=== PATIENT | female | born 1980 | race Caucasian/White ===

== ENCOUNTER 2019-05-31 15:48 | Emergency (ER) | payer OTHER ==
--- NOTE | 2019-05-31 15:51 | ED Physician Documentation ---
General Adult - HISTORIAN Historian: patient - HPI Stated Complaint: "stomach bug" Chief Complaint: General Adult Onset: days ago Timing: still present Severity: moderate Further Comments: yes (Pt is a 38 yo female with hx gastric sleeve who says that she "has a stomach bug" that has affected several members of her family. Pt has had n/v x 3 days with some diarrhea.) - ROS CONST: weakness EYES/ENT: none CVS/RESP: none GI/: abdominal pain (diffuse) MS/SKIN/LYMPH: none - PAST HX Past History: other (gastric sleeve, depression) Allergies/Adverse Reactions: Allergies Allergy/AdvReac Type Severity Reaction Status Date / Time latex Allergy Verified 05/31/19 16:17 metoclopramide [From Reglan] Allergy Verified 05/31/19 16:17 paroxetine HCl [From Paxil] Allergy Verified 05/31/19 16:17 Home Medications: Ambulatory Orders Medication Instructions Recorded Zolpidem Tartrate [Ambien] 5 mg PO HS u2 03/10/13 - SOCIAL HX Smoking History: non-smoker - FAMILY HX Family History: No - REVIEWED ASSESSMENTS Nursing Assessment Reviewed: Yes Vitals Reviewed: Yes Progress - Progress Progress: NS 1 L IVF Zofran 4 mg IV NS + 40 mEq/L KCL, 1 L @ 250 cc/hr elevated Liver enzymes, T. Bili. = 4.7 Transfer to [facility], . - EKG/XRAY/CT EKG: rhythm (sinus tachycardia, [id number].) General Adult Physical Exam - PHYSICAL EXAM GENERAL APPEARANCE: mild distress EENT: pharynx normal NECK: normal inspection, supple RESPIRATORY: no resp distress, chest non-tender, breath sounds normal CVS: reg rate & rhythm, heart sounds normal ABDOMEN: soft, no organomegaly, normal bowel sounds, tenderness (mild, diffuse) BACK: normal inspection, no CVA tenderness SKIN: warm/dry, normal color EXTREMITIES: non-tender, normal range of motion, no evidence of injury NEURO: oriented X3, motor nml, sensation nml Discharge Clincal Impression: Hypokalemia, Elevated liver enzymes, hx gastric sleeve Nausea & vomiting Qualifiers: Vomiting type: unspecified Vomiting Intractability: non-intractable Qualified Code(s): R11.2 - Nausea with vomiting, unspecified Referrals: Primary Doctor,No [Primary Care Provider] - Condition: Stable Disposition: 02 XFER SHT-TRM HOSP Decision to Admit: NO Decision Time: 18:42
[2019-05-31] MEDS ORDERED: ONDANSETRON HCL/PF 4 MG/ 2ML VIAL IVP ONE (16:03)
[2019-05-31] MEDS ORDERED: 0.9 % SODIUM CHLORIDE 1,000 ML IV ONE (16:04)
[2019-05-31 16:22] LABS: BASOPHILS % 1.2 % (0.0-1.5)
[2019-05-31 16:32] LABS: eGFR (Non-African) > 60
[2019-05-31] MEDS ORDERED: POTASSIUM CHLORIDE 40 MEQ/NS 1,000 ML IV ONE (16:34)
[2019-05-31] MEDS ORDERED: POTASSIUM CHLORIDE 40 MEQ/NS 1,000 ML IV SCH (17:00)
[2019-05-31 20:05] VITALS: BP 123/80
== END 2019-05-31 19:33 | disposition short-term general hospital (02) ==
LOC: ED 15:48
DX: E87.6 Hypokalemia (principal); R94.5 Abnormal results of liver function studies; R11.2 Nausea with vomiting, unspecified; Z98.84 Bariatric surgery status
CPT/HCPCS: 80053; 83690; 85025; 93005; 96361; 96374; 96375; 99283; 99284; J2405; J3480; J7030; S1016